=== PATIENT | female | born 1975 | race African-American/Black ===

== ENCOUNTER 2017-10-09 16:30 | Emergency (ER) | payer MEDICAID ==
--- NOTE | 2017-10-09 17:11 | ER Document Report ---
ED Medical Screen (RME) - General Chief Complaint: Foot Pain Stated Complaint: FOOT PAIN Time Seen by Provider: 10/09/17 17:05 TRAVEL OUTSIDE OF THE [place] IN LAST 30 DAYS: No - HPI Notes: 10/09/17 17:10 Patient is a 41-year-old female no significant past medical history presents to the ED complaining of left lateral foot pain status post twist injury about 2 weeks ago. Patient states that she was walking down the back of her porch when her foot inverted and she fell. Patient states that she has had pain there since. Patient has been using crutches and a walking boot with minimal relief. She has been using some [id number] meds with minimal relief. The pain does not radiate. She denies any drug allergies. No other concerns or complaints at this time. Denies any headache, fever, head injury, neck pain, URI, sore throat, chest pain, palpitations, syncope, cough, shortness of breath , wheeze, dyspnea, abdominal pain, nausea/vomiting/diarrhea, urinary retention, dysuria, hematuria, loss of control of bowel or bladder, numbness/tingling, saddle anesthesia, muscle paralysis/weakness, or rash. - Related Data Allergies/Adverse Reactions: No Known Allergies Allergy (Unverified 10/09/17 16:33) Physical Exam - Vital signs Vitals: Temp Pulse Resp BP Pulse Ox 97.8 F 120 H 18 130/87 H 99 10/09/17 16:40 10/09/17 16:40 10/09/17 16:40 10/09/17 16:40 10/09/17 16:40 - Notes Notes: Left foot: FROM to passive/active at the ankle/toes. Strength 5+/5. No obvious swelling, ecchymosis, abrasion, laceration, or deformity noted. Achilles intact. N/V intact distal. + tenderness to the dorsal lateral foot to palp. - Respiratory Respiratory status: No respiratory distress Breath sounds: Normal - Cardiovascular Rhythm: Regular Heart sounds: Normal auscultation Course - Vital Signs Vital signs: Temp Pulse Resp BP Pulse Ox 97.8 F 120 H 18 130/87 H 99 10/09/17 16:40 10/09/17 16:40 10/09/17 16:40 10/09/17 16:40 10/09/17 16:40
--- NOTE | 2017-10-09 17:32 | RADIOLOGY REPORT (SQ) ---
EXAM DESCRIPTION: FOOT LEFT COMPLETE COMPLETED DATE/TIME: 10/09/2017 5:22 pm REASON FOR STUDY: left lateral foot pain s/p injury COMPARISON: None. NUMBER OF VIEWS: Three views. TECHNIQUE: AP, lateral and oblique radiographic images acquired of the left foot. LIMITATIONS: None. FINDINGS: MINERALIZATION: Normal. BONES: No acute fracture or dislocation. No worrisome bone lesions. JOINTS: No effusions. SOFT TISSUES: Mild dorsal forefoot soft tissue swelling. No foreign body. OTHER: No other significant finding. IMPRESSION: Dorsal forefoot soft tissue swelling. No radiopaque foreign body. No fracture. TECHNICAL DOCUMENTATION: JOB ID: [id number] [employer]- All Rights Reserved
--- NOTE | 2017-10-09 18:08 | ER Document Report ---
ED Extremity Problem, Lower - General Chief Complaint: Foot Pain Stated Complaint: FOOT PAIN Time Seen by Provider: 10/09/17 17:05 Mode of Arrival: Ambulatory Information source: Patient TRAVEL OUTSIDE OF THE [place] IN LAST 30 DAYS: No - HPI Patient complains to provider of: Injury Location: Foot Occurred: Last week Where: Home Notes: Patient arrives with complaints of left foot pain. She states that last week she was walking down her steps when she slipped inverting her left foot which then slid off the step and hit the step below it causing pain to the lateral aspect of the left foot. She continues to have pain on this foot and is unable to bear weight secondary to pain. She denies any fevers. She denies any numbness, tingling, weakness. She denies any nausea, vomiting, diarrhea. No chest pain or shortness of breath. She denies any other significant injuries. Pain is worse with weightbearing and touching the area, nothing in particular seems to make it better. She denies any other complaints at this time. - Related Data Allergies/Adverse Reactions: No Known Allergies Allergy (Unverified 10/09/17 16:33) Past Medical History - Social History Smoking Status: Unknown if Ever Smoked Family History: Reviewed & Not Pertinent Review of Systems - Review of Systems -: Yes All other systems reviewed and negative Physical Exam - Vital signs Vitals: Temp Pulse Resp BP Pulse Ox 97.8 F 120 H 18 130/87 H 99 10/09/17 16:40 10/09/17 16:40 10/09/17 16:40 10/09/17 16:40 10/09/17 16:40 - Notes Notes: GENERAL: alert, cooperative, nontoxic, no distress. HEAD: normocephalic, atraumatic EYES: conjunctiva pink without discharge, no external redness or swelling. EARS: no external swelling, no external redness NOSE: atraumatic, no external swelling MOUTH/THROAT: mucous membranes moist and pink NECK: soft, supple, full range of motion, no meningismus. CHEST: no distress, lungs clear and equal throughout. No wheezing, rales, rhonchi. CARDIAC: regular rhythm, mild tachycardia , no murmur, normal capillary refill, normal pulses. BACK: full range of motion, no CVA tenderness. EXTREMITIES: Tenderness with mild swelling to the lateral aspect of the left foot. No erythema. Normal cap refill and sensation distally. No lateral ankle tenderness. No proximal tib-fib tenderness. Full range of motion of the foot and ankle. No rash. No obvious ligament instability. NEURO: alert and oriented 3, no focal deficits, full range of motion of all extremities. PYSCH: appropriate mood, affect. Patient is cooperative. SKIN: pink, warm, dry, no rash. Course - Re-evaluation Re-evalutation: 10/09/17 18:05 Patient is nontoxic appearing with stable vitals. The patient injured her left foot last week slipping off a step and inverting her left foot. She continues to have pain. X-ray showed no acute fractures per the radiologist. On exam she has no signs of infection, compartments are soft and she has a normal neurovascular exam. She will be placed in an Alexei wrap in a postop shoe. She is using her crutches she has from home to ambulate. She was instructed she could continue using her crutches as needed. She will be discharged home with a prescription for ibuprofen and instructions to follow-up with orthopedist at the next available appointment due to her continued pain. Follow-up sooner if she develops increasing pain, fever, redness, numbness, tingling, weakness, any further concerns. The patient is noted to have elevated blood pressure during today's emergency department visit. The patient was informed of this finding. The patient was instructed that this may be related to pre-hypertension and requires further evaluation with a primary care provider. The patient has no hypertensive symptoms at this time. The patient's emergency department workup and current diagnosis were explained to the patient and or family. Follow-up instructions were provided. Medications if prescribed were discussed. Instructions for when to return to the emergency department including specific worrisome symptoms were discussed with the patient and/or family. - Vital Signs Vital signs: Temp Pulse Resp BP Pulse Ox 97.8 F 120 H 18 130/87 H 99 10/09/17 16:40 10/09/17 16:40 10/09/17 16:40 10/09/17 16:40 10/09/17 16:40 Procedures - Immobilization Left foot Pre-Proc Neuro Vasc Exam: Normal Immobilizer type: Alexei wrap, Post-op shoe Post-Proc Neuro Vasc Exam: Normal Alignment checked and good: Yes Discharge - Discharge Clinical Impression: Contusion of left foot, initial encounter, Other sprain of left foot, initial encounter Condition: Stable Disposition: HOME, SELF-CARE Instructions: Ice Packs ([facility]), Splint Precautions ([facility]), Sprain ([facility]) Additional Instructions: Wear Alexei wrap and postop shoe and use crutches as needed for comfort. Rest, ice , elevate your foot. Take medication as prescribed. Follow-up with orthopedist at the next available appointment. Follow-up sooner for increased pain, fever, redness, numbness, tingling, weakness, any further concerns. Your blood pressure was elevated during today's visit. Have this rechecked with your doctor. Prescriptions: Ibuprofen [Motrin 600 Mg Tablet] 600 mg PO TID #30 tablet Forms: Elevated Blood Pressure, Smoking Cessation Education Referrals: LIZABETH MCGILL DO [ACTIVE STAFF] - Follow up as needed [facility] [Provider Group] - Follow up as needed
[2017-10-09 18:26] VITALS: BP 127/86
== END 2017-10-09 18:41 | disposition home or self-care (01) ==
LOC: ER 16:30
DX: S90.32XA Contusion of left foot, initial encounter (principal); S93.602A Unspecified sprain of left foot, initial encounter; R03.0 Elevated blood-pressure reading, without diagnosis of hypertension; W10.8XXA Fall (on) (from) other stairs and steps, initial encounter; Y92.008 Other place in unspecified non-institutional (private) residence as the place of occurrence of the external cause
CPT/HCPCS: 99283

== ENCOUNTER 2019-10-05 19:15 | Inpatient (IN) | payer SELFPAY ==
[2019-10-05] MEDS ORDERED: OXYTOCIN/NORMAL SALINE 20 UNIT/1,000 ML RTUINJ ONE (19:42)
[2019-10-05] MEDS ORDERED: LIDOCAINE 1% INJ-PF (10 MG/ML) 30 ML SDV ONE (19:42)
[2019-10-05] MEDS ORDERED: PENICILLIN G-K 5 MILLION UNIT VIAL ONE (19:42)
[2019-10-05] MEDS ORDERED: MISOPROSTOL 0.2 MG TABLET ONE (19:42)
[2019-10-05] MEDS ORDERED: OXYTOCIN 10 UNIT/ML VIAL ONE (19:42)
--- NOTE | 2019-10-05 19:56 | Admission Physical ---
Datetime Report Generated by CPN: 10/05/2019 19:56 CURRENT ADMISSION Chief Complaint: Uterine Contractions; Suspected Ruptured Membranes Indication for Induction- Other: at [facility] [place] with Estimated LMP of december 2018 in active labor. She reports no PNC this Admit Impression : Active Labor; Ruptured Membranes Admit Plan: Admit to Unit; Initiate Labor Protocol ALLERGIES Medication Allergies: No Medication Allergies: No Known Allergies (10/09/2017) Latex: No Latex Allergies OBSTETRICAL HISTORY : 6 Para: 5 Term: 5 : 0 SAB: 0 IAB: 0 Ectopic: 0 Livin Cesareans: 0 VBACs: 0 Multiple Births: 0 SEE RECORDS Alcohol: No Marijuana : No Cocaine: No Other Illicit Drugs: No Cigarettes: Current Some Day Smoker. [id number] PHYSICAL EXAM General: Normal HEENT: Normal Neurologic: Normal Thyroid: Normal Heart: Normal Lungs: Normal Breast: Normal Back: Normal Abdomen: Normal Genitourinary Exam: Normal Extremities: Normal DTRs: Normal Pelvic Type: Adequate VAGINAL EXAM Dilatation: 10 Effacement: 100 Station: -2 Contraction Comments: regular MEMBRANES Membranes: Ruptured FETUS A Monitoring: External US FHR- Baseline: 130 Variability: Moderate 6-25bpm Accelerations: 15X15 Decelerations: None FHR Category: Category I Presentation: Vertex Admit Comment: at unknown [place] Estimated LMP of december 2018 in active labor. She reports no PNC this -By estimate of mid December 2018, she would be 39 wks?? -Admit to LDR -NPO and IVFs -CEFM and toco -Grossly ruptured. Begin PCN IV as GBS unknown -Hx 5 prior SVDs -No medical issues per patient -Anticipate PLANS FOR LABOR AND DELIVERY Labor and Delivery: None Pain Management: Natural Benefit of Breast Feed Discussed: Yes Circumcision: No INFORMED CONSENT Informed Consent Obtained: Vaginal Delivery; Risks, Benefits and Alternatives Discussed Signature: with User ID: [email or web address] : with User ID: [email or web address]
[2019-10-05 20:21] LABS: APPEARANCE,URINE CLEAR; BILIRUBIN,URINE NEGATIVE (NEGATIVE); COLOR,URINE YELLOW; GLUCOSE, URINE NEGATIVE (NEGATIVE); KETONES,URINE NEGATIVE (NEGATIVE); LEUKOCYTE ESTERASE,URINE TRACE (NEGATIVE); NITRITE,URINE NEGATIVE (NEGATIVE); PROTEIN,URINE 100 mg/dL (NEGATIVE); URINE SPECIFIC GRAVITY 1.009; UROBILINOGEN,URINE NEGATIVE mg/dL (<2.0)
[2019-10-05] MEDS ORDERED: ACETAMINOPHEN WITH CODEINE #3 TABLET PO PRN ×2 (20:29)
[2019-10-05] MEDS ORDERED: DIPH/PERTUSS(ACELL)/TETANUS VAC/PF 0.5 ML SYR (>=10YO) IM PRN (20:29)
[2019-10-05] MEDS ORDERED: BENZOCAINE/MENTHOL AEROSOL SPRAY 56 ML TOP PRN (20:29)
[2019-10-05] MEDS ORDERED: MEASLES,MUMPS&RUBELLA VACC/PF 0.5 ML VIAL SUBCUT PRN (20:29)
[2019-10-05] MEDS ORDERED: OXYTOCIN/NORMAL SALINE 20 UNIT/1,000 ML RTUINJ IV PRN (20:29)
[2019-10-05] MEDS ORDERED: ZOLPIDEM TARTRATE 5 MG TABLET PO PRN (20:29)
[2019-10-05] MEDS ORDERED: DIBUCAINE 1% OINTMENT 28 GM TP PRN (20:29)
[2019-10-05] MEDS ORDERED: ACETAMINOPHEN WITH CODEINE #3 TABLET ONE (20:31)
[2019-10-05] MEDS ORDERED: IBUPROFEN 800 MG TABLET ONE (20:31)
[2019-10-05] MEDS: IBUPROFEN 800 MG TABLET PO SCH (20:35)
[2019-10-05 20:39] LABS: URINE AMPHETAMINES SCREEN NEGATIVE; URINE BARBITURATES SCREEN NEGATIVE; URINE BENZODIAZEPINES SCREEN NEGATIVE; URINE COCAINE SCREEN NEGATIVE; URINE METHADONE SCREEN NEGATIVE; URINE PHENCYCLIDINE SCREEN NEGATIVE
[2019-10-05 20:41] LABS: URINE MARIJUANA (THC) SCREEN UNCONFIRMED POSITIVE
[2019-10-05 21:02] LABS: ABSOLUTE LYMPHOCYTES (AUTO) 1.6 10^3/uL (0.5-4.7); ABSOLUTE MONOCYTES (AUTO) 0.6 10^3/uL (0.1-1.4); ABSOLUTE NEUT (AUTO) 7.6 10^3/uL (1.7-8.2); BASOPHILS % (AUTO) 0.5 % (0-2); EOSINOPHILS % (AUTO) 0.4 % (0-6); HEMATOCRIT 32.6 % (36.0-47.0); HEMOGLOBIN 10.9 g/dL (12.0-15.5); MEAN CORPUSCULAR HGB CONC 33.3 g/dL (32.0-36.0); MEAN CORPUSCULAR VOLUME 90 fl (80-97); MONOCYTES % (AUTO) 6.4 % (3-13); PLATELET COUNT 163 10^3/uL (150-450); RED BLOOD COUNT 3.63 10^6/uL (3.72-5.28); RED CELL DISTRIBUTION WIDTH 13.4 % (11.5-14.0); SEGMENTED NEUTROPHILS % (AUTO) 76.7 % (42-78); TOTAL CELLS COUNTED % (AUTO) 100 %; WHITE BLOOD COUNT 9.9 10^3/uL (4.0-10.5)
[2019-10-05] MEDS ORDERED: LABETALOL HCL 200 MG TABLET ONE (21:25)
[2019-10-05] MEDS ORDERED: LABETALOL HCL INJ 20 MG/4 ML DISP.SYRIN IV ONE (21:26)
--- NOTE | 2019-10-05 22:35 | Warning Signs in Babies ---
VOD Warning Signs Datetime Report Generated by [facility]: 10/05/2019 22:34 VOD#608 -Warning Signs in Babies: Needs to be viewed. (10/05/2019 19:47:Tanesha Dangelo RN)
[2019-10-05] MEDS ORDERED: LABETALOL HCL 200 MG TABLET PO ONE (23:45)
--- NOTE | 2019-10-06 00:08 | Delivery Summary ---
Del Sum A-C Datetime Report Generated by CPN: 10/06/2019 00:08 DELIVERY PERSONNEL DELIVERY PERSONNEL: [id number] Delivery Doctor:: Cristina Petersen MD Labor and Delivery Nurse:: Sarah Miller RNprocess analyst Nurse:: Tanesha aDngelo RN (Annotations: Data stored by CPN on behalf of user) Nursery Nurse:: Goldie Wylie RN Nursery Nurse:: Goldie Roca RN Family Practice Physician/CREDIT CONTROL ASSISTANT: Kennedi Nascimento, ST MATERNAL INFORMATION Delivery Anesthesia: None Medications After Delivery: Pitocin Bolus-Please Comment Meds After Delivery Comment: Pitocin 20 units Estimated Blood Loss (ml): 250 Delivery QBL: 250 Maternal Complications: Abnormal Cord Length; Other (Annotations: Data stored by CPN on behalf of user) Complication Details: no PNC, short cord Provider Comments: Called to patients room on arrival to floor as she was complete and +2. After IV started and PCN running, patient had urge to push. Delivered male over intact perineum. Cord clamping delayed approximately 30 seconds as infant was vigorous. Clear fluid noted. Cord doubly clamped and cut and infant placed skin to skin with Mother. During fundal massage the uterus was still approximately 30 wks size and on digital exam second set of intact membranes felt. Doppler replaced and second FHR noted. Called for US for presentation but during second assessment of cervix a head was felt. Membranes ruptured and clear fluid noted. Large quantitiy. After pushing through two more contractions a second male delivered in direct OP position with nuchal cord x1. Unable to reduce and delivered through easily. Baby B vigorous and cord clamping delayed for approx 30 seconds. Cord then doubly clamped, cut and placed skin to skin with Mother. No lacerations. Placenta delivered intact, spontaneously and will be sent to lab for pathology. Fundus firm with massage. Pitocin running. Both infants and Mother stable. LABOR SUMMARY EDC: 11/09/2019 00:00 No. Babies in Womb: 1 Attempted: No Labor Anesthesia: None LABOR INFORMATION Reason for Induction: Not Applicable Onset of Labor: 10/05/2019 18:00 Complete Dilatation: 10/05/2019 19:42 Oxytocin: N/A Group B Beta Strep: UNKNOWN Antibiotics # of Doses: 1 Antibiotics Time of Last Dose: 2005 Name of Antibiotic Given: pcn Steroids Given: None Reason Steroids Not Administered: Not Applicable MEMBRANES Membranes Rupture Method: Spontaneous Rupture of Membranes: 10/05/2019 18:30 Length of Rupture (hr): 1.68 Amniotic Fluid Color: Clear Amniotic Fluid Amount: Small Amniotic Fluid Odor: Normal STAGES OF LABOR Stage 1 hr: 1 Stage 1 min: 42 Stage 2 hr: 0 Stage 2 min: 29 Stage 3 hr: 0 Stage 3 min: 13 Total Time in Labor hr: 2 Total Time in Labor min: 24 VAGINAL DELIVERY Episiotomy: None Laceration #1: None Laceration Extension #1: N/A Laceration Repair: Not Applicable Sponge Count Correct: N/A Sharps Count Correct: N/A CSECTION DELIVERY Primary Indication: N/A Secondary Indication: N/A CSection Incidence: N/A Labor: N/A Elective: N/A CSection Incision: N/A BABY A INFORMATION Infant Delivery Date/Time: 10/05/2019 20:11 Method of Delivery: Vaginal Born in Route : No : N/A Forceps: N/A Vacuum Extraction: N/A Shoulder Dystocia : No PRESENTATION/POSITION BABY A Presentation: Cephalic Cephalic Presentation: Vertex Vertex Position: Left Occipital Anterior Breech Presentation: N/A PLACENTA INFORMATION BABY A Placenta Delivery Time : 10/05/2019 20:24 Placenta Method of Delivery: Spontaneous Placenta Status: Delivered SCORES BABY A Heart Rate 1 min: >100 bpm Resp Effort 1 min: Good Cry Reflex Irritability 1 min: Cough or Sneeze or Pulls Away Muscle Tone 1 min: Active Motion Color 1 min: Blue/Pale Resuscitation Effort 1 min: Tactile Stimulation SCORE 1 MIN: 8 Heart Rate 5 min: >100 bpm Resp Effort 5 min: Good Cry Reflex Irritability 5 min: Cough or Sneeze or Pulls Away Muscle Tone 5 min: Active Motion Color 5 min: Body [place], Extremities Blue Resuscitation Effort 5 min: Tactile Stimulation SCORE 5 MIN: 9 INFANT INFORMATION BABY A Gestational Age at Delivery: 35.0 Gestational Status: Late - 34- 36.6 Weeks Infant Outcome : Liveborn Infant Condition : Stable Sex: Male IDENTIFICATION BABY A Verification Date/Time: 10/05/2019 20:33 ID Band Number: [id number] Mother's Name Verified: Yes Infant RN Verifying Infant: Chris don RN Additional Verifying Personnel: Ring B RN WEIGHT/LENGTH BABY A Infant Birthweight (gm): 1960 Weight (lb): 4 Infant Weight (oz): 5 Infant Length (in): 19.61 Infant Length (cm): 49.81 CORD INFORMATION BABY A No. 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 Infant Respirations: Intercostal Retractions; Tachypnea Skin to Skin: No Supervisor Safety Deposit/ALS Called : No Infant Care By: Darrell Roca RN and Darrell Cuevas RN Transferred To: Nursery BABY B INFORMATION Infant Delivery Date/Time: 10/05/2019 20:20 Method of Delivery : Vaginal Born in Route : No : N/A Forceps : N/A Vacuum Extraction: N/A Shoulder Dystocia : No SHOULDER DYSTOCIA BABY B Infant Delivery Date/Time: 10/05/2019 20:20 PRESENTATION/POSITION BABY B Presentation : Cephalic Cephalic Position : Vertex Vertex Position: Right Occipital Posterior Breech Position: N/A ROM/PLACENTA INFO BABY B Rupture of Membranes: 10/05/2019 20:16 Length of Rupture (hr): 0.07 Placenta Delivery Time : 10/05/2019 20:24 Placenta Method of Delivery: Spontaneous Placental Status : Delivered SCORES BABY B Heart Rate 1 min: >100 bpm Resp Effort 1 min: Good Cry Reflex Irritability 1 min: Cough or Sneeze or Pulls Away Muscle Tone 1 min: Active Motion Color 1 min: Blue/Pale Resuscitation Effort 1 min: Tactile Stimulation SCORE 1 MIN: 8 Heart Rate 5 min: >100 bpm Resp Effort 5 min: Good Cry Reflex Irritability 5 min: Cough or Sneeze or Pulls Away Muscle Tone 5 min: Active Motion Color 5 min: Body [place], Extremities Blue Resuscitation Effort 5 min: Tactile Stimulation SCORE 5 MIN: 9 INFORMATION BABY B Gestational Age at Delivery: 35.0 Gestational Status : Late - 34- 36.6 Weeks Infant Outcome : Liveborn Infant Condition : Stable Sex : Male IDENTIFICATION BABY B Infant Verification Date/Time: 10/05/2019 20:34 ID Band Number : [id number] Mother's Name Verified: Yes RN Verifying Infant: Dary, A. RN Additional Verifying Personnel: Ring, B. RN WEIGHT/LENGTH BABY B Birthweight (gm): 2041 Infant Weight (lb) : 4 Weight (oz): 8 Length (in): 20.41 Length (cm): 51.84 CORD INFORMATION BABY B No. 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
[2019-10-06 01:47] LABS: CHLAM PCR NOT DETECTED (NOT DETECT)
[2019-10-06] MEDS: IBUPROFEN 800 MG TABLET PO SCH ×3 (06:02→21:38)
[2019-10-06 08:16] LABS: HEMATOCRIT 26.1 % (36.0-47.0); MEAN CORPUSCULAR HEMOGLOBIN 29.8 pg (27.0-33.4); MEAN CORPUSCULAR HGB CONC 33.3 g/dL (32.0-36.0); MEAN CORPUSCULAR VOLUME 90 fl (80-97); PLATELET COUNT 123 10^3/uL (150-450); RED BLOOD COUNT 2.91 10^6/uL (3.72-5.28); RED CELL DISTRIBUTION WIDTH 13.4 % (11.5-14.0); WHITE BLOOD COUNT 13.2 10^3/uL (4.0-10.5)
[2019-10-06 08:24] LABS: HEMOGLOBIN 8.7 g/dL (12.0-15.5)
[2019-10-06] MEDS: LABETALOL HCL 200 MG TABLET PO SCH ×2 (09:43→17:19)
[2019-10-06] MEDS: SENNOSIDES/DOCUSATE 8.6-50 MG 1 EACH TABLET PO SCH (09:43)
[2019-10-06] MEDS: PRENATAL VITAMIN W DHA CAPSULE PO SCH (09:43)
[2019-10-06] MEDS: FERROUS SULFATE 325 MG TABLET PO SCH ×2 (09:43→17:19)
[2019-10-06] MEDS: DOCUSATE SODIUM 100 MG CAPSULE PO SCH ×2 (09:44→17:19)
--- NOTE | 2019-10-06 10:04 | PDOC PROGRESS REPORT ---
Subjective-OB Progress Note for:: 10/06/19 - PP Day #1, no PNC. S/p of twin boys last evening. pt plans to breastfeed. Ob labwork still pending. A+, Rubella Immune. +THC Physical Exam (OB) Vital Signs: Temp Pulse Resp BP Pulse Ox 97.8 F 73 16 157/81 H 100 10/06/19 07:38 10/06/19 07:38 10/06/19 07:38 10/06/19 07:38 10/06/19 07:38 Intake & Output 10/05/19 10/06/19 10/07/19 06:59 06:59 06:59 Weight 70.8 kg - General General Appearance: Appears well, Alert In distress: None - PIH/Pre-Eclampsia DTR's: 1 + Clonus: Negative Headache: Absent Epigastric Pain: No Visual Changes: No - Lochia Lochia Amount: Scant < 10 ml Lochia Color: Rubra/Red - Abdomen Description: Soft, Round Hernia Present: No Fundal Description: Firm, Midline Fundal Height: u/u - u/2 - Respiratory Respiratory Status: No respiratory distress - Abdominal Distension: No distension Tenderness: Nontender - Genitourinary Genitourinary Note: voiding - Extremities Upper extremity: Normal inspection Lower extremities: Normal inspection - Neurological Cognition: Normal Orientation: AAOx4 - Psychological Associated symptoms: Normal affect, Normal mood - Skin Skin Temperature: Warm Skin Moisture: Dry Objective-Diagnostic Laboratory: 10/06/19 07:10 10/05/19 10/05/19 10/05/19 20:14 20:52 20:52 WBC 9.9 RBC 3.63 L Hgb 10.9 L Hct 32.6 L MCV 90 MCH 30.0 MCHC 33.3 RDW 13.4 Plt Count 163 Seg Neutrophils % 76.7 Urine Color YELLOW Urine Appearance CLEAR Urine pH 7.0 Ur Specific [place] 1.009 Urine Protein 100 H Urine Glucose (UA) NEGATIVE Urine Ketones NEGATIVE Urine Blood MODERATE H Urine Nitrite NEGATIVE Ur Leukocyte Esterase TRACE H Blood Type A POSITIVE Antibody Screen NEGATIVE 10/06/19 07:10 WBC 13.2 H RBC 2.91 L Hgb 8.7 L D Hct 26.1 L MCV 90 MCH 29.8 MCHC 33.3 RDW 13.4 Plt Count 123 L Seg Neutrophils % Urine Color Urine Appearance Urine pH Ur Specific [place] Urine Protein Urine Glucose (UA) Urine Ketones Urine Blood Urine Nitrite Ur Leukocyte Esterase Blood Type Antibody Screen Assessment and Plan(PN) - Assessment and Plan (1) No care in current Qualifiers: Trimester: third trimester Qualified Code(s): O09.33 - Supervision of with insufficient care, third trimester Is this a current diagnosis for this admission?: Yes (2) Twin Is this a current diagnosis for this admission?: Yes (3) Tetrahydrocannabinol (THC) use disorder, mild, abuse Is this a current diagnosis for this admission?: Yes (4) Advanced maternal age (AMA), 40 years or greater Is this a current diagnosis for this admission?: Yes (5) Hypertension affecting Qualifiers: Trimester: third trimester Qualified Code(s): O16.3 - Unspecified maternal hypertension, third trimester Is this a current diagnosis for this admission?: Yes (6) (normal spontaneous vaginal delivery) Is this a current diagnosis for this admission?: Yes (7) Anemia affecting Qualifiers: Trimester: third trimester Qualified Code(s): O99.013 - Anemia complicating , third trimester Is this a current diagnosis for this admission?: Yes Plan:: Routine PP orders, ambulation encouraged - Time Spent with Patient Time with patient: Less than 15 minutes Medications reviewed and adjusted accordingly: Yes - Disposition Anticipated Discharge: Home Within: within 24 hours
[2019-10-07] MEDS: IBUPROFEN 800 MG TABLET PO SCH ×2 (05:09→14:34)
[2019-10-07] MEDS: SENNOSIDES/DOCUSATE 8.6-50 MG 1 EACH TABLET PO SCH (09:08)
[2019-10-07] MEDS: DOCUSATE SODIUM 100 MG CAPSULE PO SCH (09:08)
[2019-10-07] MEDS: PRENATAL VITAMIN W DHA CAPSULE PO SCH (09:08)
[2019-10-07] MEDS: FERROUS SULFATE 325 MG TABLET PO SCH (09:08)
[2019-10-07] MEDS: LABETALOL HCL 200 MG TABLET PO SCH (09:08)
--- NOTE | 2019-10-07 09:16 | PDOC DISCHARGE SUMMARY ---
Impression - Admit/DC Date/PCP Admission Date/Primary Care Provider: 10/05/19 19:49 Discharge Date: 10/07/19 - Discharge Diagnosis (1) Advanced maternal age (AMA), 40 years or greater Is this a current diagnosis for this admission?: Yes (2) Anemia affecting Is this a current diagnosis for this admission?: Yes (3) Hypertension affecting Is this a current diagnosis for this admission?: Yes (4) (normal spontaneous vaginal delivery) Is this a current diagnosis for this admission?: Yes (5) No care in current Is this a current diagnosis for this admission?: Yes (6) Tetrahydrocannabinol (THC) use disorder, mild, abuse Is this a current diagnosis for this admission?: Yes (7) Twin Is this a current diagnosis for this admission?: Yes - Assessment Summary: Patient with no care admitted for labor with twin gestation. vaginal delivery. unremarkable post course with exception elevated BPs which have been treated with Labetolol with good result. Will see patient in one week for a bp check at [facility] office and medication adjustment. - Additional Information Discharge Diet: As Tolerated Discharge Activity: Balance Activity w/Rest, Pelvic Rest, No tub bath Prescriptions: Ibuprofen [Motrin 800 mg Tablet] 800 mg PO Q8 #60 tablet Labetalol HCl [Normodyne 200 mg Tablet] 200 mg PO BID #60 tablet Vit/Dha [ Multi + Dha Capsule] 1 cap PO DAILY #30 capsule Home Medications: Vits96/Iron Fum/Folic [ Tablet] 1 tab PO DAILY 10/05/19 Ibuprofen [Motrin 800 mg Tablet] 800 mg PO Q8 #60 tablet 10/07/19 Labetalol HCl [Normodyne 200 mg Tablet] 200 mg PO BID #60 tablet 10/07/19 Vit/Dha [ Multi + Dha Capsule] 1 cap PO DAILY #30 capsule 10/07/19 History of Present Illiness History of Present Illness: ANITA YAN is a 43 year old female Physical Exam - Physical Exam Vital Signs: Temp Pulse Resp BP Pulse Ox 98.0 F 64 16 156/87 H 100 10/07/19 09:07 10/07/19 09:07 10/07/19 09:07 10/07/19 09:07 10/07/19 09:07 Intake & Output 10/06/19 10/07/19 10/08/19 06:59 06:59 06:59 Weight 70.8 kg Results Laboratory Results: WBC 13.2 10^3/uL (4.0-10.5) H 10/06/19 07:10 RBC 2.91 10^6/uL (3.72-5.28) L 10/06/19 07:10 Hgb 8.7 g/dL (12.0-15.5) L D 10/06/19 07:10 Hct 26.1 % (36.0-47.0) L 10/06/19 07:10 MCV 90 fl (80-97) 10/06/19 07:10 MCH 29.8 pg (27.0-33.4) 10/06/19 07:10 MCHC 33.3 g/dL (32.0-36.0) 10/06/19 07:10 RDW 13.4 % (11.5-14.0) 10/06/19 07:10 Plt Count 123 10^3/uL (150-450) L 10/06/19 07:10 Lymph % (Auto) 16.0 % (13-45) 10/05/19 20:52 Mobile % (Auto) 6.4 % (3-13) 10/05/19 20:52 Eos % (Auto) 0.4 % (0-6) 10/05/19 20:52 Baso % (Auto) 0.5 % (0-2) 10/05/19 20:52 Absolute Neuts (auto) 7.6 10^3/uL (1.7-8.2) 10/05/19 20:52 Absolute Lymphs (auto) 1.6 10^3/uL (0.5-4.7) 10/05/19 20:52 Absolute Monos (auto) 0.6 10^3/uL (0.1-1.4) 10/05/19 20:52 Absolute Eos (auto) 0.0 10^3/uL (0.0-0.6) 10/05/19 20:52 Absolute Basos (auto) 0.0 10^3/uL (0.0-0.2) 10/05/19 20:52 Seg Neutrophils % 76.7 % (42-78) 10/05/19 20:52 Urine Color YELLOW 10/05/19 20:14 Urine Appearance CLEAR 10/05/19 20:14 Urine pH 7.0 (5.0-9.0) 10/05/19 20:14 Ur Specific [place] 1.009 10/05/19 20:14 Urine Protein 100 mg/dL (NEGATIVE) H 10/05/19 20:14 Urine Glucose (UA) NEGATIVE mg/dL (NEGATIVE) 10/05/19 20:14 Urine Ketones NEGATIVE mg/dL (NEGATIVE) 10/05/19 20:14 Urine Blood MODERATE (NEGATIVE) H 10/05/19 20:14 Urine Nitrite NEGATIVE (NEGATIVE) 10/05/19 20:14 Urine Bilirubin NEGATIVE (NEGATIVE) 10/05/19 20:14 Urine Urobilinogen NEGATIVE mg/dL (<2.0) 10/05/19 20:14 Ur Leukocyte Esterase TRACE (NEGATIVE) H 10/05/19 20:14 Urine Ascorbic Acid NEGATIVE (NEGATIVE) 10/05/19 20:14 Urine Opiates Screen NEGATIVE 10/05/19 20:14 Urine Methadone Screen NEGATIVE 10/05/19 20:14 Ur Barbiturates Screen NEGATIVE 10/05/19 20:14 Ur Phencyclidine Scrn NEGATIVE 10/05/19 20:14 Ur Amphetamines Screen NEGATIVE 10/05/19 20:14 U Benzodiazepines Scrn NEGATIVE 10/05/19 20:14 Urine Cocaine Screen NEGATIVE 10/05/19 20:14 U Marijuana (THC) Screen UNCONFIRMED POSITIVE 10/05/19 20:14 RPR NONREACTIVE (NONREACTIVE) 10/05/19 20:52 Chlamydia DNA (PCR) NOT DETECTED (NOT DETECT) 10/05/19 20:14 HIV 1&2 Antibody NEGATIVE (NEGATIVE) 10/05/19 20:52 N.gonorrhoeae DNA (PCR) NOT DETECTED (NOT DETECT) 10/05/19 20:14 Rubella IgG Antibody 72.70 IU/mL 10/05/19 20:52 Rubella IgG Ab Interp POSITIVE 10/05/19 20:52 Blood Type A POSITIVE 10/05/19 20:52 Antibody Screen NEGATIVE 10/05/19 20:52 Antigen Identification A1 Antigen - POSITIVE 10/05/19 20:52 Stroke Is this a Stroke Patient?: No Acute Heart Failure - Is this a Heart Failure Patient?: No
[2019-10-07 10:24] VITALS: BP 133/64
[2019-10-07 13:36] LABS: HEPATITIS C VIRUS AB <0.1 s/co ratio (0.0-0.9)
[2019-10-07 16:14] LABS: HEPATITS B SURFACE ANTIGEN Negative (Negative)
== END 2019-10-07 16:09 | disposition home or self-care (01) | DRG 806 ==
LOC: LC 19:15 → LR 19:49 → 2S 22:56
PROVIDERS: ADMIT Obstetrics & Gynecology; ATTEND Obstetrics & Gynecology
PROC: 10E0XZZ Delivery of Products of Conception, External Approach (ICD-10-PCS; principal; 2019-10-05)
DX: O30.043 Twin pregnancy, dichorionic/diamniotic, third trimester (principal); O99.324 Drug use complicating childbirth; Z37.2 Twins, both liveborn; O16.4 Unspecified maternal hypertension, complicating childbirth; O69.3XX1 Labor and delivery complicated by short cord, fetus 1; O69.81X2 Labor and delivery complicated by cord around neck, without compression, fetus 2; O76 Abnormality in fetal heart rate and rhythm complicating labor and delivery; O99.02 Anemia complicating childbirth; F12.10 Cannabis abuse, uncomplicated; Z3A.35 35 weeks gestation of pregnancy
CPT/HCPCS: 36415; 80307; 80349; 81005; 85025; 85027; 86592; 86701; 86762; 86803; 86804; 86850; 86900; 86901; 87340; 87491; 87591; 88307; 94760; G0480; J2540; J2590; J3490